=== PATIENT | female | born 1955 | race Caucasian/White ===

== ENCOUNTER → 2016-09-19 | Outpatient (CLI) | payer OTHER ==
--- NOTE | ~2016-09-19 | CR181 ---
[facility] A Service of [facility] & [facility] RADIOLOGY TEXT RESULTS PATIENT: TASHIA HERNANDES LOCATION: [facility] : 55 UNIT #: [id number] AGE: [address]: Ruth Barros NOT IN SYSTEM SEX: F ORDER DR: [id number] [facility] [address] [place], [place] [address] [id number] O MR#: [id number] Acc #: [id number] NAME: TASHIA HERNANDES. : 1955 SEX: F STUDY DATE/TIME: 09/19/2016 14:17 UNIT: [facility] ROOM: STUDY DESCRIPTION: CR Lumbar Spine 2 or 3 Views Attending Physician: Jr Not Listed Referring Physician: Jr Not Listed Ordering Physician: Garcia Thomas M.D. Primary Care Physician: Rosas Amin Jr., M.D. MEDICAL IMAGING REPORT This report is preliminary unless electronic signature is present EXAM Lumbar spine, 3 views. HISTORY 61-year-old female with chronic back pain for many years. Degenerative disc disease. History of back surgery many years ago. FINDINGS AP, lateral, and coned lateral views of the lumbar spine submitted. There is loss of the normal lumbar lordosis with actual kyphotic curvature in the upper thoracic spine and at the thoracolumbar junction. Patient is fused L1-2 and L2-3 with firm bony fusion across the disc spaces. Advanced degenerative disc changes noted at L3-4, L4-5 with vacuum disc at L4-5. No fracture identified. No malalignment. Small amount of arterial vascular calcifications noted. Degenerative disc changes are also seen in the lower thoracic spine. Pain pump noted overlying the lower abdomen and pelvis. IMPRESSION 1. Loss of the normal lumbar lordosis with actual accentuated kyphotic curvature at the upper lumbar spine thoracolumbar junction. 2. Status post spinal fusion L1-2, L2-3 with firm bony fusion. 3. Moderately advanced L3-4, L4-5 degenerative disc disease as well as degenerative disc changes lower thoracic spine. Dictated by... Yovanny Douglas M.D. THIS IS AN ELECTRONICALLY VERIFIED REPORT Yovanny Douglas M.D. at 09/21/2016 10:35 PM SOTERO/lexi [facility]. [facility] A Service of [facility] RADIOLOGY TEXT RESULTS PATIENT: TASHIA HERNANDES LOCATION: [facility] : 55 UNIT #: [id number] AGE: [address]: Generic Doctor NOT IN SYSTEM SEX: F ORDER DR: TD: 09/19/2016 16:36 JOB #: [id number] MEDICAL IMAGING REPORT Page 1 of 1 COPY
--- NOTE | ~2016-09-19 | CR242 ---
[facility] A Service of [facility] RADIOLOGY TEXT RESULTS PATIENT: TASHIA HERNANDES LOCATION: [facility] #: [id number] : 55 UNIT #: [id number] AGE: [address]: Generic Doctor NOT IN SYSTEM SEX: F ORDER DR: [id number] [facility] [address] [place], [place] [address] [id number] O MR#: [id number] Acc #: [id number] NAME: TASHIA HERNANDES : 1955 SEX: F STUDY DATE/TIME: 09/19/2016 14:18 UNIT: [facility] ROOM: STUDY DESCRIPTION: CR Thoracic Spine 2 Views Attending Physician: Generic Doctor Not In System Referring Physician: Generic Doctor Not In System Ordering Physician: Garcia Thomas M.D. Primary Care Physician: Rosas Amin Jr., M.D. MEDICAL IMAGING REPORT This report is preliminary unless electronic signature is present REVISED REPORT EXAM Thoracic spine 3 views, 09/19/2016 HISTORY Thoracic spine pain for 2 years. Degenerative disc disease. No known injury. FINDINGS 3 views of the thoracic spine demonstrate no fracture. The posterior vertebral body line is intact and there is no anterolisthesis or retrolisthesis. Mild disc space narrowing is seen in the [id number] thoracic spine with marginal osteophyte formation. Scoliosis of the thoracolumbar spine is noted. Prior anterior fusion within the lower cervical spine. IMPRESSION Degenerative change and scoliosis of the thoracic spine. No acute abnormality. Dictated by... Ulises Mendez M.D. THIS IS AN ELECTRONICALLY VERIFIED REPORT Ulises Mendez M.D. at 09/26/2016 8:07 AM IESHA/clau TD: 09/20/2016 07:59 JOB #: [id number] CC: Sovera/invision Please Delete MEDICAL IMAGING REPORT [facility] A Service of [facility] RADIOLOGY TEXT RESULTS PATIENT: TASHIA HERNANDES [id number] 55 UNIT #: [id number] AGE: [address]: Generic Doctor NOT IN SYSTEM SEX: F ORDER DR: Page 1 of 1 COPY
== END | disposition home or self-care (01) ==
LOC: CRAD 13:08
DX: G89.29 Other chronic pain (principal); M51.36 Other intervertebral disc degeneration, lumbar region; M47.894 Other spondylosis, thoracic region; M40.46 Postural lordosis, lumbar region; Z96.89 Presence of other specified functional implants; Z98.1 Arthrodesis status
CPT/HCPCS: 72070; 72100

== ENCOUNTER 2016-11-07 11:13 | Emergency (ER) | payer OTHER ==
--- NOTE | ~2016-11-07 | EKG ---
PATIENT: TASHIA HERNANDES UNIT #: [id number] Ventricular Rate: 72 BPM Atrial Rate: 72 BPM P-R Interval: 162 ms QRS Duration: 94 ms Q-T Interval: 432 ms QTC Calculation(Bezet): 473 ms P Rowley: 18 degrees Calculated R Rowley: 33 degrees Calculated T Rowley: 53 degrees Diagnosis Line: Normal sinus rhythm Diagnosis Line: Low voltage QRS Diagnosis Line: Cannot rule out Anterior infarct , age Diagnosis Line: undetermined Diagnosis Line: Abnormal ECG Diagnosis Line: No previous ECGs available Diagnosis Line: Confirmed by LEN DELCID MD ([id number]) on Diagnosis Line: 11/08/2016 8:21:46 AM INTERPRETING MD: BHAVIN MANZANO
--- NOTE | ~2016-11-07 | CT16 ---
[facility] A Service of [facility] & [facility] RADIOLOGY TEXT RESULTS PATIENT: TASHIA HERNANDES LOCATION: [facility] : 55 UNIT #: [id number] AGE: [address]: Julia Griffith MD SEX: F ORDER DR: [id number] [facility] [address] [place], [place] [address] [id number] E MR#: [id number] Acc #: [id number] NAME: TASHIA HERNANDES. : 1955 SEX: F STUDY DATE/TIME: 11/07/2016 14:11 UNIT: [facility] ROOM: STUDY DESCRIPTION: CT Angio Chest for PE Attending Physician: Julia Griffith M.D. Ordering Physician: Julia Griffith M.D. Primary Care Physician: Rosas Amin Jr., M.D. MEDICAL IMAGING REPORT This report is preliminary unless electronic signature is present EXAM CT chest PE protocol. HISTORY Cough for 1-2 weeks. Right arm pain. This CT exam was performed with one or more of the following radiation dose reduction techniques: automatic exposure control, adjustment of mA and/or kV according to patient size, and iterative reconstruction. FINDINGS Axial images performed through the chest following IV contrast. 3-D coronal and sagittal reconstructed images were reviewed at a workstation. Examination demonstrates patchy areas of alveolitis medial aspect and lateral aspect right middle lobe and also in the right lower lobe. This is nonspecific but may be infectious in etiology. Tis could also represent hypersensitivity pneumonitis. No dense consolidation and no sizeable effusions. Trachea bronchi unremarkable. Normal enhancement of the pulmonary arteries. No evidence of embolus. Aorta free dissection or aneurysm. Heart size within normal limits. No significant adenopathy. Visualized upper abdomen unremarkable. Degenerative changes noted throughout the thoracic spine, thoracic inlet unremarkable. IMPRESSION 1. Patchy alveolitis right middle lobe, right lower lobe, nonspecific but may be infectious in etiology. Other considerations would include hypersensitivity pneumonitis though considered less likely. There is also a moderate amount of associated right middle lobe atelectasis and lingular atelectasis. 2. No evidence of pulmonary embolus. STS. [facility] A Service of [facility] & [facility] RADIOLOGY TEXT RESULTS PATIENT: TASHIA HERNANDES LOCATION: [facility] : 55 UNIT #: [id number] AGE: [address]: Julia Griffith MD SEX: F ORDER DR: Dictated by... Yovanny Douglas M.D. THIS IS AN ELECTRONICALLY VERIFIED REPORT Yovanny Douglas M.D. at 11/08/2016 12:32 PM Nadia TD: 11/08/2016 01:54 JOB #: [id number] MEDICAL IMAGING REPORT Page 1 of 1 COPY
--- NOTE | ~2016-11-07 | CR282 ---
[facility] A Service of [facility] RADIOLOGY TEXT RESULTS PATIENT: TASHIA HERNANDES LOCATION: [facility] : 55 UNIT #: [id number] AGE: [address]: Julia Griffith MD SEX: F ORDER DR: [id number] [place] [id number] [place], [place] [address] [id number] E MR#: [id number] Acc #: [id number] NAME: TASHIA HERNANDES. : 1955 SEX: F STUDY DATE/TIME: 11/07/2016 11:58 UNIT: [facility] ROOM: STUDY DESCRIPTION: CR Wrist Min 3 View Rt Attending Physician: Julia Griffith M.D. Ordering Physician: Julia Griffith M.D. Primary Care Physician: Rosas Amin Jr., M.D. MEDICAL IMAGING REPORT This report is preliminary unless electronic signature is present EXAM Right wrist, 3 views. HISTORY Wrist pain x5 days. FINDINGS Three views of the right wrist demonstrates moderately advanced arthritic changes at the first CMC joint and scaphotrapezial joint. No erosions. No fracture. Small amount of chondrocalcinosis noted within the region of the TFCC and could be indicative of underlying calcium pyrophosphate deposition arthropathy. Arthritic changes are also seen at the IP joint of the thumb. Mild soft tissue swelling noted about the wrist. IMPRESSION 1. No definite acute abnormality. 2. Multifocal arthropathy most pronounced first CMC joint and also at the scaphotrapezial joint. Chondrocalcinosis and calcifications within the region of the TFCC and along the volar aspect of the wrist could reflect underlying CPPD arthropathy or pseudogout. Correlate clinically. Additional arthritic changes noted at the first MCP joint and IP joint of the thumb in a pattern compatible with osteoarthritis. Dictated by... Yovanny Douglas M.D. THIS IS AN ELECTRONICALLY VERIFIED REPORT Yovanny Douglas M.D. at 11/08/2016 12:31 PM SOTERO/ludy [facility] A Service of [facility] & [facility] RADIOLOGY TEXT RESULTS PATIENT: TASHIA HERNANDES LOCATION: [facility] #: [id number] : 55 UNIT #: [id number] AGE: [address]: Julia Griffith MD SEX: F ORDER DR: TD: 11/08/2016 00:05 JOB #: [id number] MEDICAL IMAGING REPORT Page 1 of 1 COPY
--- NOTE | ~2016-11-07 | CR72 ---
[facility] A Service of [facility] & [facility] RADIOLOGY TEXT RESULTS PATIENT: TASHIA HERNANDES LOCATION: [facility] : 55 UNIT #: [id number] AGE: [address]: Julia Griffith MD SEX: F ORDER DR: [id number] [facility] [address] [place], [place] [address] [id number] E MR#: [id number] Acc #: [id number] NAME: TASHIA HERNANDES. : 1955 SEX: F STUDY DATE/TIME: 11/07/2016 11:56 UNIT: [facility] ROOM: STUDY DESCRIPTION: CR Chest Single View Portable Attending Physician: Julia Griffith M.D. Ordering Physician: Julia Griffith M.D. Primary Care Physician: Rosas Amin Jr., M.D. MEDICAL IMAGING REPORT This report is preliminary unless electronic signature is present EXAM Portable chest. HISTORY Cough, shortness of air x5 days. Past history of CHF, smoker. COMPARISON 02/03/2014 FINDINGS Portable view of the chest demonstrates parenchymal opacity right infrahilar region right lung base most likely represents an area of chronic atelectasis and scarring given its stability from prior exams. Left lung remains clear. Heart and mediastinum unremarkable. There is extensive right hilar paratracheal calcifications compatible with prior granulomas disease. Mild scoliosis. Overall no acute findings. Dictated by... Yovanny Douglas M.D. THIS IS AN ELECTRONICALLY VERIFIED REPORT Yovanny Douglas M.D. at 11/08/2016 12:31 PM Vilma TD: 11/08/2016 00:03 JOB #: [id number] MEDICAL IMAGING REPORT Page 1 of 1 COPY
[2016-11-07 12:42] LABS: URINE SOURCE CLEAN CATCH
[2016-11-07 12:45] LABS: BASOPHIL# 0.1 X10e3 (0-0.3); BASOPHIL% 1.1 % (0-2.5); DIFF IND NO; EOSINOPHIL# 0.6 X10e3 (0-0.7); HEMATOCRIT 37.7 % (35.0-45.0); LYMPHOCYTE# 2.9 X10e3 (1.0-3.5); LYMPHOCYTE% 23.6 % (17.0-45.0); MEAN CELL VOLUME 87.6 FL (83-96); MEAN CORPUSCULAR HGB CONC 31.9 g/dL (30-36); MEAN PLATELET VOLUME 8.9 FL (6.5-11.5); MONOCYTE# 1.2 X10e3 (0-1.0); MONOCYTE% 9.8 % (3.0-12.0); NEUTROPHIL# 7.5 X10e3 (1.5-7.1); NEUTROPHIL% 60.5 % (40-75); PLATELET COUNT 391 X10e3 (140-420); RED CELL DISTRIBUTION WIDTH 13.8 % (11.0-15.5); WHITE BLOOD COUNT 12.4 X10e3 (4.0-10.5)
[2016-11-07 12:47] LABS: POC - CKMB 2.3 ng/mL (0.0-7.9); POC - TROPONIN <0.05 ng/mL (<=0.05)
[2016-11-07 12:47] LABS: URINE APPEARANCE CLEAR; URINE BILIRUBIN NEG (NEG); URINE BLOOD NEG (NEG); URINE COLOR YELLOW; URINE GLUCOSE NEG (NEG); URINE KETONE NEG (NEG); URINE LEUKOCYTE ESTERASE NEG (NEG); URINE NITRATE NEG (NEG); URINE PH 6.5 (5-8); URINE PROTEIN NEG (NEG); URINE SPECIFIC GRAVITY 1.007 (1.003-1.035); URINE UROBILINOGEN 0.2 MG/DL (NEG)
[2016-11-07 12:51] LABS: CULTURE INDICATED? NO
[2016-11-07 12:57] LABS: AMPHETAMINE NEG (NEG); BARBITURATES NEG (NEG); BENZODIAZEPINES POS (NEG); COCAINE NEG (NEG); MARIJUANA NEG (NEG); OPIATES POS (NEG); TRICYCLIC ANTIDEPRESSANTS POS (NEG); U METHADONE NEG (NEG)
[2016-11-07 13:01] LABS: PARTIAL THROMBOPLASTIN TIME 28.3 SECONDS (23.5-31.3); PROTHROMBIN TIME (PATIENT) 10.8 SECONDS (10.0-11.7)
[2016-11-07 13:11] LABS: ALBUMIN SERUM 3.2 g/dL (3.5-5.0); ALKALINE PHOSPHATASE 79 U/L (32-92); ALT (SGPT) 10 U/L (10-40); AST (SGOT) 15 U/L (10-42); BILIRUBIN, DIRECT 0.1 mg/dL (0.0-0.2); BILIRUBIN,INDIRECT 0.4 mg/dL (0.0-0.9); BILIRUBIN,TOTAL 0.5 mg/dL (0.2-2.0); BLOOD UREA NITROGEN 20 mg/dL (9-23); CALCIUM SERUM 9.2 mg/dL (8.4-10.2); CARBON DIOXIDE 31 mmol/L (22-31); CHLORIDE 96 mmol/L (100-111); GLOM FILT RATE Estimated 60.8 mL/min (>60); GLUCOSE FASTING 90 mg/dL (70-110); POTASSIUM 3.5 mmol/L (3.5-5.1); PROTEIN TOTAL SERUM 7.3 g/dL (6.0-8.3); SODIUM 137 mmol/L (135-145)
[2016-11-07 13:12] LABS: ALCOHOL BLOOD <5 mg/dL (0)
[2016-11-07 14:20] LABS: POC - TROPONIN <0.05 ng/mL (<=0.05)
== END 2016-11-07 16:15 | disposition home or self-care (01) ==
LOC: CED 11:13
PROVIDERS: Emergency Medicine
DX: J18.9 Pneumonia, unspecified organism (principal); M25.531 Pain in right wrist; I50.9 Heart failure, unspecified; I10 Essential (primary) hypertension; J44.9 Chronic obstructive pulmonary disease, unspecified; F17.210 Nicotine dependence, cigarettes, uncomplicated; Z90.49 Acquired absence of other specified parts of digestive tract; Z90.89 Acquired absence of other organs; Z88.0 Allergy status to penicillin
CPT/HCPCS: 36415; 71010; 71275; 73110; 80048; 80076; 80307; 81003; 82553; 83880; 84484; 85025; 85379; 85610; 85730; 93005; 99285; G0480; Q9967